=== PATIENT | female | born 1970 | race Caucasian/White ===

== ENCOUNTER 2018-07-25 01:44 | Emergency (ER) | payer BC, OTHER ==
[~2018-07-25] VITALS: Ht 160 cm; Wt 75.0 kg
[2018-07-25 01:47] VITALS: Ht 160 cm; Wt 75.0 kg
[2018-07-25] MEDS ORDERED: HYDROmorphONE 2 MG/ML SYG IM STA (01:50)
[2018-07-25] MEDS ORDERED: ONDANSETRON (ODT) 4 MG TAB ODT STA (01:50)
--- NOTE | 2018-07-25 02:16 | ERD ---
ER Documentation Chief Complaint Chief Complaint ERIC SCHUMACHER,from home,R knee & R foot pain and swelling, s/p fall HPI 47-year-old female who presents to the emergency room. Just prior to arrival the patient was walking and stepped awkwardly feeling a popping sensation in her right knee and rolling her right ankle. The pain is noted to be 9 out of 10 and throbbing. She has swelling of her right knee and lateral aspect of right ankle. She denies head trauma or other extremity injury. No prior injuries to this leg. During the patient's encounter translation services were utilized Language: [Aremenian] Source: [Family] ROS All systems reviewed and are negative except as per history of present illness. Allergies Allergies: Coded Allergies: No Known Drug Allergies (Verified Allergy, Unknown, 03/13/12) FmHx Family History: No diabetes Physical Exam Vitals Vital Signs Date Temp Pulse Resp B/P (MAP) Pulse Ox O2 O2 Flow FiO2 Time Delivery Rate 07/25/18 98.6 77 14 111/74 98 Room Air 02:56 (86) 07/25/18 98.0 85 16 133/83 97 Room Air 02:25 (100) 07/25/18 101.0 78 18 129/76 95 01:47 (93) Physical Exam General: Uncomfortable Head: Normocephalic, atraumatic. Eyes: Pupils equally reactive, EOM intact ENT: Moist mucous membranes Neck: Supple, no lymphadenopathy Respiratory: Nonlabored Cardiovascular: Peripherally perfusing Abdominal: Soft, non-tender, non-distended, no peritoneal signs : Deferred MSK: the patient's right lower extremity has soft tissue swelling and effusion to the right knee. Limited range of motion secondary to pain. No significant instability. The patient has swelling to the soft tissue just inferior to the lateral malleolus. No tenderness to the medial malleolus, midfoot or the base of the fifth metatarsal. No other extremity injury Neurologic: Alert and oriented, moving all extremities, normal speech, no focal weakness, no cerebellar signs Skin: No rash Psych: Normal mood Result Diagram: 07/25/18 0236 07/25/186 Results 24 hrs Laboratory Tests Test 07/25/18 02:36 White Blood Count 13.4 10^3/ul Red Blood Count 4.63 10^6/ul Hemoglobin 14.1 g/dl Hematocrit 41.4 % Mean Corpuscular Volume 89.4 fl Mean Corpuscular Hemoglobin 30.5 pg Mean Corpuscular Hemoglobin Concent 34.1 g/dl Red Cell Distribution Width 12.6 % Platelet Count 292 10^3/UL Mean Platelet Volume 9.9 fl Immature Granulocytes % 0.300 % Neutrophils % 75.8 % Lymphocytes % 14.2 % Monocytes % 9.0 % Eosinophils % 0.4 % Basophils % 0.3 % Nucleated Red Blood Cells % 0.0 /100WBC Immature Granulocytes # 0.040 10^3/ul Neutrophils # 10.2 10^3/ul Lymphocytes # 1.9 10^3/ul Monocytes # 1.2 10^3/ul Eosinophils # 0.1 10^3/ul Basophils # 0.0 10^3/ul Nucleated Red Blood Cells # 0.0 10^3/ul Prothrombin Time 12.9 Sec Prothrombin Time Ratio 1.0 INR International Normalized Ratio 0.96 Activated Partial Thromboplast Time 28.7 Sec Sodium Level 142 mmol/L Potassium Level 4.1 mmol/L Chloride Level 106 mmol/L Carbon Dioxide Level 26 mmol/L Anion Gap 10 Blood Urea Nitrogen 9 mg/dl Creatinine 0.62 mg/dl Est Glomerular Filtrat Rate mL/min > 60 mL/min Glucose Level 123 mg/dl Calcium Level 10.4 mg/dl Current Medications Medications Dose Sig/Caty Start Time Status Last (Trade) Ordered Route PRN Stop Time Admin Dose Reason Admin 1 mg ONCE STAT 07/25/18 DC 07/25/18 Hydromorphone IM 01:50 02:12 HCl 07/25/18 01:52 (Dilaudid) Ondansetron 4 mg ONCE STAT 07/25/18 DC 07/25/18 HCl (Zofran ODT 01:50 02:12 Odt) 07/25/18 01:52 Procedures/MDM EKG, MONITORS, & DIAGNOSTIC IMAGING: X-ray right knee: I reviewed and interpreted multiple views of the x-ray Bones: Apparent fracture and displacement of the femoral epicondyle Soft tissue: No evidence of foreign body X-ray right ankle: I reviewed and interpreted multiple views of the x-ray Bones: Medial malleolus fracture Soft tissue: No evidence of foreign body Chest x-ray: I reviewed and interpreted a 1 view of the chest Mediastinum: No enlargement Cardiac silhouette: No cardiomegaly Airspace: Clear lung [place] bilaterally without evidence of pneumothorax Bones: No evidence of fracture PROCEDURES: Splint Application Note: Splint type: Knee immobilizer, stirrup splint Extremity: Right lower extremity Indication: Right knee and right ankle injury The patient was consented at bedside prior to splint application and states understanding of risks, benefits, and alternatives. The patient was neurovascularly intact prior to and status post application of the splint. The patient tolerated the procedure well and there were no complications. LAB INTERPRETATION: * No acute process MEDICAL DECISION MAKING: Clear mechanical trip and fall. The patient has joint effusion concerning for fracture or ligamentous tear. X-ray imaging of the knee and ankle will be scotty ropriate. No signs of syncope arrhythmia or stroke. ER COURSE: * Patient given IM Dilaudid. * X-ray imaging shows evidence of a femoral condylar fracture and a medial malleolar fracture. * The femoral condylar fracture may require orthopedic surgical intervention on a more urgent basis. I discussed the case with on-call orthopedic surgeon Dr. Rucker. He feels that inpatient would be superior to outpatient but either are possible. * At this point the patient still requires pain control medication. She is having difficulty ambulating even with crutches. We discussed the risk benefits alternatives and the patient prefers hospitalization. I believe this is reasonable and consistent with recommendations from a career development specialist. * The patient is capitated to outside hospital. I discussed the case with Dr. Peña at [facility]. He will consult career development specialist. He is accepted the case. CONSULTATION: Orthopedic surgery as above DISPOSITION PLAN: Accepting care team and consultations: I discussed the current laboratory data, diagnostic imaging and emergency care provided. Admitting team: Dr Peña Admitting team indication: Insurance directed Departure Diagnosis: Primary Impression: Closed fracture of medial malleolus of right ankle Encounter type: initial encounter Fracture alignment: displaced Qualified Codes: S82.51XA - Displaced fracture of medial malleolus of right tibia, initial encounter for closed fracture Additional Impression: Closed fracture of lateral condyle of right femur Encounter type: initial encounter Fracture alignment: displaced Qualified Codes: S72.421A - Displaced fracture of lateral condyle of right femur, initial encounter for closed fracture Condition: Stable FRANK WILLINGHAM MD Jul 25, 2018 02:16
[2018-07-25] MEDS ORDERED: HYDROmorphONE 0.5 MG/0.5 ML SYG IV STA (06:07)
[2018-07-25 06:21] VITALS: BP 142/75; PULSE 70; RESP 18
== END 2018-07-25 06:33 | disposition short-term general hospital (02) ==
LOC: E/R 01:44
DX: S82.51XA Displaced fracture of medial malleolus of right tibia, initial encounter for closed fracture (principal); R40.2142 Coma scale, eyes open, spontaneous, at arrival to emergency department; R40.2362 Coma scale, best motor response, obeys commands, at arrival to emergency department; R40.2252 Coma scale, best verbal response, oriented, at arrival to emergency department; S72.421A Displaced fracture of lateral condyle of right femur, initial encounter for closed fracture; W18.39XA Other fall on same level, initial encounter; Y92.9 Unspecified place or not applicable
CPT/HCPCS: 29515; 71045; 73562; 73610; 80048; 85025; 85610; 85730; 96372; 96374; J1170; Z7502; Z7610